=== PATIENT | male | born 1980 | race Caucasian/White ===

== ENCOUNTER 2024-08-26 20:51 | Emergency (ER) | payer MEDICAID ==
[~2024-08-26] VITALS: Ht 182.9 cm; Wt 105.0 kg
[2024-08-26 20:53] VITALS: O2SAT 94
[2024-08-26 21:48] VITALS: BP 154/94; PULSE 90; RESP 22; TEMP 36.9; O2SAT 94
[2024-08-26] MEDS: CHLORDIAZEPOXIDE 25MG CAPSULE PO ONE (21:59)
[2024-08-26 22:40] LABS: BASOPHILS % 1.5 % (0.0-2.0); EOSINOPHILS % 4.8 % (0.0-5.0); HEMATOCRIT. 45.4 % (42.0-52.0); LYMPHOCYTES % 19.6 % (20.0-50.0); MEAN CORPUSCULAR HEMOGLOBIN 31.8 pg (28.0-32.0); MEAN CORPUSCULAR HGB CONC 35.2 g/dL (31.0-37.0); MEAN CORPUSCULAR VOLUME 90.3 fL (80.0-94.0); MEAN PLATELET VOLUME 7.2 fl (7.4-10.4); MONOCYTES % 9.3 % (2.0-8.0); NEUTROPHILS % 64.8 % (40.0-76.0); PLATELET 141 x1000/uL (130-400); RED BLOOD CELL COUNT 5.03 mill/uL (4.7-6.1); RED CELL DISTRIBUTION WIDTH 13.4 % (11.6-14.6); WHITE BLOOD COUNT 5.4 x1000/uL (4.5-11.0)
[2024-08-26] MEDS: FUROSEMIDE 40MG/4ML VIAL IVP ONE (22:42)
[2024-08-26 22:49] LABS: CHLORIDE 99 mEq/L (98-107); POTASSIUM 3.7 mEq/L (3.5-5.1); SODIUM 134 mEq/L (136-145)
[2024-08-26 22:50] LABS: CARBON DIOXIDE 27 mEq/L (21-32)
[2024-08-26 22:51] LABS: CALCIUM 9.1 mg/dL (8.7-10.4)
[2024-08-26 22:55] LABS: CREATININE 0.6 mg/dL (0.6-1.3); GLUCOSE 155 mg/dL (70-105)
[2024-08-26 22:56] LABS: TROPONIN I HIGH SENSITIVITY 4 ng/L (3.0-53)
[2024-08-26 23:00] LABS: UREA NITROGEN BLOOD < 5 mg/dL (9-23)
[2024-08-26 23:05] LABS: INR 1.1; PARTIAL THROMBOPLASTIN TIME 29.6 sec (23.4-31.0); PROTHROMBIN TIME 11.9 sec (9.6-11.0)
[2024-08-27] MEDS ORDERED: IPRATROPIUM/ALBUTEROL 0.5-3(2.5)MG/3ML NEB NEB PRN (01:45)
[2024-08-27] MEDS ORDERED: ACETAMINOPHEN 325MG TABLET PO PRN ×2 (01:45)
[2024-08-27] MEDS ORDERED: ONDANSETRON HCL 4MG/2ML INJ IV PRN (01:45)
[2024-08-27] MEDS ORDERED: GUAIFENESIN 200MG/10ML SUGAR FREE UDC PO PRN (01:45)
[2024-08-27] MEDS ORDERED: CLONIDINE 0.1MG TABLET PO PRN (01:45)
[2024-08-27] MEDS ORDERED: HYDROCODONE/ACETAMINOPHEN 5/325MG TABLET PO PRN (01:45)
[2024-08-27] MEDS ORDERED: MAGNESIUM/ALUMINUM HYDROXIDE/SIMETHICONE 30ML UDC PO PRN (01:45)
[2024-08-27] MEDS ORDERED: ENOXAPARIN 40MG/0.4ML SYR SUBCUT SCH (01:45)
[2024-08-27] MEDS ORDERED: DOCUSATE SODIUM 100MG CAPSULE PO PRN (01:45)
== END 2024-08-27 00:15 | disposition left against medical advice (07) ==
LOC: ER 20:51 → EDBEDREQTM 23:24 → EDBEDREQ 23:24 → ER 08-27 00:15
DX: A00.0 Cholera due to Vibrio cholerae 01, biovar cholerae (principal); I11.0 Hypertensive heart disease with heart failure; I50.9 Heart failure, unspecified; E11.9 Type 2 diabetes mellitus without complications; Z91.148 Patient's other noncompliance with medication regimen for other reason
CPT/HCPCS: 80048; 83880; 83735; 85025; 85610; 85730; 84484; 36415; 71045; 93005; 96374; 99291; J1940; Z7610 ×4; A4606